=== PATIENT | female | born 1995 | race Caucasian/White ===

== ENCOUNTER → 2017-11-27 | Outpatient (CLI) | payer BC ==
[2017-11-27 16:42] LABS: BASO % 0.7 %; EOS % 2.3 %; EOS ABS # 0.32 K/uL (0-0.5); HEMATOCRIT 41.3 % (37-47); HEMOGLOBIN 14.1 g/dL (12.0-16.0); IG# 0.05 K/uL (0.00-0.02); LYMPH % 26.5 %; LYMPH ABS # 3.69 K/uL (1.2-3.4); MEAN CELL VOLUME 91.4 fL (80-100); MEAN CORPUSCULAR HEMOGLOBIN 31.2 pg (25-34); MEAN CORPUSCULAR HGB CONC 34.1 g/dl (32-36); MEAN PLATELET VOLUME 9.4 fL (7.4-10.4); MONO % 7.2 %; MONO ABS # 1.01 K/uL (0.11-0.59); NEUT % 62.9 %; NEUT ABS # 8.77 K/uL (1.4-6.5); PLATELET COUNT 308 K/uL (130-400); RED CELL DISTRIBUTION WIDTH SD 43.5 fL (36.4-46.3); WHITE BLOOD COUNT 13.94 K/uL (4.8-10.8)
[2017-11-27 16:53] LABS: ALBUMIN 4.6 gm/dl (3.4-5.0); ALT/SGPT 16 U/L (12-78); BLOOD UREA NITROGEN 14 mg/dl (7-18); CALCIUM 9.2 mg/dl (8.5-10.1); CARBON DIOXIDE 23 mmol/L (21-32); CREATININE 0.74 mg/dl (0.60-1.20); GLUCOSE 86 mg/dl (70-99); POTASSIUM 3.8 mmol/L (3.5-5.1); SODIUM 138 mmol/L (136-145)
[2017-11-27 16:56] LABS: ALKALINE PHOSPHATASE 70 U/L (45-117); AST/SGOT 16 U/L (15-37); TOTAL PROTEIN 7.4 gm/dl (6.4-8.2)
== END | disposition home or self-care (01) ==
LOC: C.LABPBG 15:12
PROVIDERS: ATTEND Physician Assistant
DX: R31.9 Hematuria, unspecified (principal)

== ENCOUNTER → 2017-12-04 | Outpatient (CLI) | payer BC ==
--- NOTE | 2017-12-04 11:13 | DIAGNOSTIC IMAGING REPORT ---
EXAMINATION: RENAL ULTRASOUND CLINICAL HISTORY: R31.9 Blood in [id number] COMPARISON STUDY: None FINDINGS: The right kidney measures 10.9 cm. The left kidney measures 11.3 cm. There is no evidence of hydronephrosis. There are no renal masses. No bladder abnormalities are visualized. Bilateral ureteral jets were visualized. IMPRESSION : Normal renal ultrasound Electronically signed by: Olivier Mars M.D. 12/04/2017 11:12 AM Dictated Date/Time: 12/04/2017 11:11 AM
== END | disposition home or self-care (01) ==
LOC: C.ULTR 10:37
PROVIDERS: ATTEND Physician Assistant
DX: R31.9 Hematuria, unspecified (principal)

== ENCOUNTER → 2018-03-12 | Outpatient (CLI) | payer BC, OTHER ==
[~2018-03-12] MED LIST: OXYC-90 PO
== END | disposition home or self-care (01) ==
LOC: C.LABPBG 11:20
PROVIDERS: ATTEND Physician Assistant
DX: R31.9 Hematuria, unspecified (principal)

== ENCOUNTER 2018-03-21 00:30 | Emergency (ER) | payer BC, OTHER ==
[~2018-03-21] VITALS: Ht 172.7 cm; Wt 59.8 kg
[2018-03-21 00:35] VITALS: TEMP 36.7; Ht 172.7 cm; Wt 59.8 kg
[2018-03-21] MEDS ORDERED: KETOROLAC TROMETHAMINE 30 MG/ML VIAL IV STA (01:16)
[2018-03-21] MEDS ORDERED: ONDANSETRON INJ 2 MG/ML 2 ML VIAL IV STA (01:16)
[2018-03-21] MEDS ORDERED: MoRPHine SULFATE 10 MG/ML CARP/VIAL IV STA ×2 (01:16→03:07)
[2018-03-21] MEDS ORDERED: SODIUM CHLORIDE 0.9% 1000ML 1,000 ML IV STA (01:16)
[2018-03-21 01:43] LABS: BASO % 0.5 %; BASO ABS # 0.07 K/uL (0-0.2); EOS % 1.9 %; EOS ABS # 0.28 K/uL (0-0.5); HEMATOCRIT 40.9 % (37-47); HEMOGLOBIN 14.3 g/dL (12.0-16.0); IG# 0.03 K/uL (0.00-0.02); LYMPH % 23.2 %; LYMPH ABS # 3.48 K/uL (1.2-3.4); MEAN CELL VOLUME 92.5 fL (80-100); MEAN CORPUSCULAR HEMOGLOBIN 32.4 pg (25-34); MEAN PLATELET VOLUME 9.4 fL (7.4-10.4); MONO % 6.2 %; MONO ABS # 0.93 K/uL (0.11-0.59); NEUT ABS # 10.23 K/uL (1.4-6.5); PLATELET COUNT 253 K/uL (130-400); RED CELL DISTRIBUTION WIDTH CV 12.6 % (11.5-14.5); RED CELL DISTRIBUTION WIDTH SD 42.8 fL (36.4-46.3); WHITE BLOOD COUNT 15.02 K/uL (4.8-10.8)
[2018-03-21 02:08] LABS: CALCIUM 8.7 mg/dl (8.5-10.1); CREATININE 0.72 mg/dl (0.60-1.20); POTASSIUM 3.5 mmol/L (3.5-5.1)
[2018-03-21] MEDS ORDERED: OPTIRAY 320 IV PRN ×2 (03:30)
[2018-03-21] MEDS ORDERED: OXYC-90 PO (04:57)
--- NOTE | 2018-03-21 04:57 | EMERGENCY ROOM VISIT NOTE ---
History Report prepared by Juan: Sophia Armenta Under the Supervision of: Dr. Aditya Tee M.D. First contact with patient: 01:03 Chief Complaint: ABDOMINAL PAIN Stated Complaint: PELVIC/ ABDOMINAL PAIN Nursing Triage Summary: patient states since 1529 yesterday she has had LLQ abdominal pain and nausea. hx ovarian cysts. History of Present Illness The patient is a 22 year old female who presents to the Emergency Room with complaints of worsening left lower abdominal pain starting 11 hours ago. The patient states that the pain woke her up out of her sleep. She states that she has a history of ovarian cysts, but never has had any complications from them. 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 She reports that while there they did a trans vaginal ultrasound, but never came to talk to her for 2 hours. She reports that they did not start and IV and did not give her any of her results. She reports that she decided to leave and come here. She notes that she tried taking Tylenol and Ibuprofen with little relief. The patient complains of nausea. The patient notes that she has had hematuria, but is seeing a urologist for it a week. The patient denies vomiting, vaginal bleeding , vaginal discharge, odorous urine, the chance of being , shortness of breath, and chest pain. Source of History: patient Onset: 11 hours ago Position: abdomen (lower) Timing: worsening Modifying Factors (Relieving): tylenol, ibuprofen Associated Symptoms: + nausea, No chest pain, No SOB, No vomiting, No urinary symptoms Note: The patient denies vaginal bleeding and vaginal discharge. Review of Systems See HPI for pertinent positives & negatives. A total of 10 systems reviewed and were otherwise negative. Past Medical & Surgical Medical Problems: (1) Hx of ovarian cyst Family History Ovarian cyst Social History Smoking Status: Current Every Day Smoker Marital Status: Housing Status: lives with family Occupation Status: employed Current/Historical Medications Scheduled PRN Oxycodone Ir (Roxicodone Ir), 1-2 TAB PO Q4H PRN for Pain Allergies Coded Allergies: No Known Allergies (Unverified , 03/21/18) Physical Exam Vital Signs Date Time Temp Pulse Resp B/P (MAP) Pulse Ox O2 Delivery O2 Flow Rate FiO2 03/21/18 05:21 65 20 105/63 99 Room Air 03/21/18 04:32 73 18 102/51 98 Room Air 03/21/18 02:14 62 20 113/74 98 Room Air 03/21/18 00:35 36.7 80 20 129/81 100 Room Air Physical Exam GENERAL: Patient is uncomfortable appearing and in moderate distress. EYES: No scleral icterus, unremarkable pupils. ENT: Mucous membranes moist, no nasal congestion. NECK: No masses appreciated, no meningismus, trachea is midline. RESPIRATORY: No dyspnea. Clear to auscultation and equal bilaterally. No wheeze , no rhonchi. CARDIOVASCULAR: Regular rate and rhythm. No murmurs, rubs, gallops appreciated. GASTROINTESTINAL: Abdomen soft, exquisite tenderness to palpation to the LLQ, no peritonitis. Bowel sounds positive. No masses appreciated. BACK: No midline tenderness, no CVA tenderness EXTREMITIES: Normal motion all extremities, no cyanosis, no edema. NEUROLOGIC: Alert and oriented, no acute motor or sensory deficits, no focal weakness, cranial nerves grossly intact. SKIN: No rash, no jaundice, no diaphoresis. Medical Decision & Procedures ER Provider Diagnostic Interpretation: Stat Rad Radiology results and stated below per my review and radiologist interpretation: US PELVIC/ENDOVAG: The uterus is normal in size. The endometrium is normal in thickness. Intrauterine device in place. The ovaries are normal in size and in appearance. Free fluid in the cul-de-sac and right adnexa Radiologist: Izaiah Gonzalez MD CT ABDOMEN & PELVIS With Contrast: INDICATION: TECHNIQUE: Multiple, contiguous axial cuts of the abdomen and pelvis are obtained from the lung bases to the ischial tuberosities following the administration of IV contrast. Sagittal and coronal reformatted images are available. COMPARISON: FINDINGS: The lung bases are clear. The liver and spleen are normal in size and free of mass lesions. The gallbladder, bile ducts and pancreas are normal. The adrenal gland are unremarkable. The kidneys are normal in size and contour. No lesion or hydronephrosis. The appendix is unremarkable, as is the rest of the GI tract. Aorta is normal caliber. No adenopathy or extraluminal air. The osseous structures are normal. Intrauterine device in place. IMPRESSION: No acute findings Radiologist: Izaiah Gonzalez MD Laboratory Results 03/21/18 01:30 Red Blood Count 4.42, Mean Corpuscular Volume 92.5, Mean Corpuscular Hemoglobin 32.4, Mean Corpuscular Hemoglobin Concent 35.0, Mean Platelet Volume 9.4, Neutrophils (%) (Auto) 68.0, Lymphocytes (%) (Auto) 23.2, Monocytes (%) (Auto) 6.2, Eosinophils (%) (Auto) 1.9, Basophils (%) (Auto) 0.5, Neutrophils # (Auto) 10.23, Lymphocytes # (Auto) 3.48, Monocytes # (Auto) 0.93, Eosinophils # (Auto) 0.28, Basophils # (Auto) 0.07 03/21/18 01:30 Test 03/21/18 01:15 03/21/18 01:30 Urine Color COLORLESS Urine Appearance CLEAR (CLEAR) Urine pH 7.0 (4.5-7.5) Urine Specific [place] <= 1.005 (1.000-1.030) Urine Protein NEG (NEG) Urine Glucose (UA) NEG (NEG) Urine Ketones NEG (NEG) Urine Occult Blood 1+ (NEG) Urine Nitrite NEG (NEG) Urine Bilirubin NEG (NEG) Urine Urobilinogen NEG (NEG) Urine Leukocyte Esterase NEG (NEG) Urine RBC 5-10 /hpf (0-4) Urine WBC 1-5 /hpf (0-5) Urine Epithelial Cells 0-5 /lpf (0-5) Urine Bacteria NEG (NEG) Urine Test NEG (NEG) White Blood Count 15.02 K/uL (4.8-10.8) Red Blood Count 4.42 M/uL (4.2-5.4) Hemoglobin 14.3 g/dL (12.0-16.0) Hematocrit 40.9 % (37-47) Mean Corpuscular Volume 92.5 fL (80-100) Mean Corpuscular Hemoglobin 32.4 pg (25-34) Mean Corpuscular Hemoglobin Concent 35.0 g/dl (32-36) Platelet Count 253 K/uL (130-400) Mean Platelet Volume 9.4 fL (7.4-10.4) Neutrophils (%) (Auto) 68.0 % Lymphocytes (%) (Auto) 23.2 % Monocytes (%) (Auto) 6.2 % Eosinophils (%) (Auto) 1.9 % Basophils (%) (Auto) 0.5 % Neutrophils # (Auto) 10.23 K/uL (1.4-6.5) Lymphocytes # (Auto) 3.48 K/uL (1.2-3.4) Monocytes # (Auto) 0.93 K/uL (0.11-0.59) Eosinophils # (Auto) 0.28 K/uL (0-0.5) Basophils # (Auto) 0.07 K/uL (0-0.2) RDW Standard Deviation 42.8 fL (36.4-46.3) RDW Coefficient of Variation 12.6 % (11.5-14.5) Immature Granulocyte % (Auto) 0.2 % Immature Granulocyte # (Auto) 0.03 K/uL (0.00-0.02) Anion Gap 5.0 mmol/L (3-11) Est Creatinine Clear Calc Drug Dose 114.7 ml/min Estimated GFR () 136.8 Estimated GFR (Non- 118.0 BUN/Creatinine Ratio 15.5 (10-20) Calcium Level 8.7 mg/dl (8.5-10.1) Laboratory results as reviewed by me. Medications Administered Medications (Trade) Dose Ordered Sig/Miya Route Start Time Stop Time Status Last Admin Dose Admin Ketorolac Tromethamine (Toradol Inj) 30 mg NOW STAT IV 03/21/18 01:16 03/21/18 01:17 DC 03/21/18 02:04 30 MG Sodium Chloride 1,000 ml @ 999 mls/hr Q1H1M STAT IV 03/21/18 01:16 03/21/18 02:16 DC 03/21/18 02:05 999 MLS/HR Morphine Sulfate (MoRPHine SULFATE INJ) 6 mg NOW STAT IV 03/21/18 01:16 03/21/18 01:17 DC 03/21/18 02:04 6 MG Ondansetron HCl (Zofran Inj) 4 mg NOW STAT IV 03/21/18 01:16 03/21/18 01:17 DC 03/21/18 02:05 4 MG Morphine Sulfate (MoRPHine SULFATE INJ) 8 mg NOW STAT IV 03/21/18 03:07 03/21/18 03:09 DC 03/21/18 03:30 8 MG Oxycodone HCl (Roxicodone Immediate Rel 5MG Home Pack) 1 homepack UD ONCE PO 8/5/18 05:00 03/21/18 05:01 DC 03/21/18 05:20 1 HOMEPACK ED Course 0110: The patient was evaluated in room B3B. A complete history and physical exam was performed. 0116: Ordered Zofran Inj 4 mg IV, Morphine Sulfate 6 mg IV, NSS 1000 ml @ 999 mls/hr IV, Toradol Inj 30 mg IV. 0305: I reevaluated the patient and she reports that her pain initially went away, but has returned. I discussed the pros and cons of a CT with the patient and she wishes to proceed. 0307: Ordered Morphine Sulfate 8 mg IV. 0436: I reevaluated the patient and she denies any concerns for STDs. 0455: Reevaluated the patient. Discussed results and discharge instructions: She verbalized understanding and agreement. I discussed the possibility of this being something early and just not yet caught. I discussed the fact that she has fluid in her pelvis and she feels comfortable going home and monitoring it from there. The patient is ready for discharge. 0500: Ordered Oxycodone HCl 1 homepack PO. Medical Decision Differential: Appendicitis, Ovarian Torsion, PID, Tubo-ovarian Abscess, Intrauterine , Ectopic , Endometriosis, amongst other pathologies entertained. Sudden onset LLQ abdominal pain worse with movement and clearly TTP. US with normal ovaries and good blood flow though there is free fluid in right pelvis. Given amount of pain, requiring second round IV narcs and elevated WBC felt CT imaging indicated. Other labs look OK. UA clear. Vitals stable. No peritonitis. CT reveals no acute findings per radiology with normal appendix. Patient is feeling better. This seems unlikely to be PID/TOA and with good blood flow ovaries no evidence of torsion. Preg negative. Will treat with narcs and reviewed risks/benefits and restrictions at length. Discussed symptoms requiring RTED. Unclear why free fluid though whether this was ruptured cyst or gastroenteritis with normal CT I do not feel that there is surgical emergency. She is not hypotensive and not anemic. She is comfortable with discharge and understands we are always here to help if worsening or other concerns. Medication Reconcilliation Current Medication List: was personally reviewed by me Blood Pressure Screening Patient's blood pressure: Normal blood pressure Blood pressure disposition: Did not require urgent referral Impression Primary Impression: Left lower quadrant pain Additional Impression: Free fluid in pelvis Scribe Attestation The scribe's documentation has been prepared under my direction and personally reviewed by me in its entirety. I confirm that the note above accurately reflects all work, treatment, procedures, and medical decision making performed by me. Departure Information Dispostion Home / Self-Care Prescriptions Oxycodone Ir (Roxicodone Ir) 5 Mg Tab 1-2 TAB PO Q4H Y for Pain, #10 TAB Prov: Aditya Tee M.D. 03/21/18 Referrals Sadie Frey DO (PCP) Forms HOME CARE DOCUMENTATION FORM, IMPORTANT VISIT INFORMATION Patient Instructions Abdominal Pain - [facility], My [facility] Additional Instructions You have received a narcotic pain medication prescription. These medications may cause drowsiness and should not be used with other sedative medications. Do not drive, drink alcohol, perform dangerous activities, nor make important decisions after taking these medications. detention use or inappropriate use may lead to addiction. Problem Qualifiers
[2018-03-21] MEDS ORDERED: OXYCODONE IR HOME PACK PO ONE (05:00)
[2018-03-21 05:21] VITALS: BP 105/63; PULSE 65; O2SAT 99
--- NOTE | 2018-03-21 06:40 | DIAGNOSTIC IMAGING REPORT ---
TRANSVAG-FEMALE PELVIS HISTORY: Pelvic pain sudden onset left pelvic pain COMPARISON: None. FINDINGS: Uterus: 9.3 cm Endometrial stripe: 2 mm. Intrauterine device in good position Right ovary: 2.9 cm with normal vascular flow Left ovary: 3.5 cm normal vascular flow Miscellaneous:No pelvic free fluid. IMPRESSION: No significant abnormality identified within the pelvis. Intrauterine device within the central uterine canal. Small amount of free fluid within the pelvic cul-de-sac most likely physiologic The above report was generated using voice recognition software. It may contain grammatical, syntax or spelling errors. Electronically signed by: J Carlos Caceres M.D. 03/21/2018 6:38 AM Dictated Date/Time: 03/21/2018 6:37 AM
--- NOTE | 2018-03-21 06:57 | DIAGNOSTIC IMAGING REPORT ---
ABD/PELVIS IV CONTRAST ONLY CT DOSE: 287.19 mGy.cm HISTORY: Pain. Nausea. LLQ pain, WBC elevation, free fluid pelvis TECHNIQUE: Multiaxial CT images of the abdomen and pelvis were performed following the use of intravenous contrast. A dose lowering technique was utilized adhering to the principles of ALARA. COMPARISON STUDY: None. FINDINGS: The lung bases are clear. The liver, spleen, gallbladder, pancreas, kidneys, and adrenal glands are within normal limits. No bowel wall thickening or obstruction. The pelvic organs are unremarkable. No suspicious lytic or blastic osseous lesions. In intrauterine device is present. Uterus is anteflexed. Trace amount of physiologic fluid within the pelvic cul-de-sac. IMPRESSION: No significant abnormality identified within the abdomen or pelvis. The above report was generated using voice recognition software. It may contain grammatical, syntax or spelling errors. Electronically signed by: J Carlos Caceres M.D. 03/21/2018 6:56 AM Dictated Date/Time: 03/21/2018 6:54 AM
== END 2018-03-21 05:25 | disposition home or self-care (01) ==
LOC: C.EDB 00:31
DX: R10.32 Left lower quadrant pain (principal); F17.200 Nicotine dependence, unspecified, uncomplicated